=== PATIENT | female | born 1975 | race Caucasian/White ===

== ENCOUNTER 2022-08-26 13:31 | Inpatient (IN) | payer MEDICAID ==
[~2022-08-26] VITALS: Ht 165.1 cm; Wt 119.7 kg
[2022-08-26 18:45] LABS: BASOPHILS % 0.2 % (0.0-2.0); EOSINOPHILS % 1.8 % (0.0-5.0); HEMATOCRIT. 40.9 % (36.0-48.0); HEMOGLOBIN. 13.6 g/dL (12.0-16.0); LYMPHOCYTES % 30.3 % (20.0-50.0); MEAN CORPUSCULAR HEMOGLOBIN 28.2 pg (28.0-32.0); MEAN CORPUSCULAR VOLUME 84.6 fL (81.0-99.0); MEAN PLATELET VOLUME 9.4 fl (7.4-10.4); MONOCYTES % 7.4 % (2.0-8.0); NEUTROPHILS % 60.3 % (40.0-76.0); PLATELET 268 x1000/uL (130-400); RED BLOOD CELL COUNT 4.84 mill/uL (4.2-5.4); RED CELL DISTRIBUTION WIDTH 13.7 % (11.6-14.6)
[2022-08-26 18:58] LABS: CHLORIDE 104 mEq/L (98-107)
[2022-08-26 19:08] LABS: HCG SCREEN NEGATIVE
[2022-08-26] MEDS ORDERED: KETOROLAC 30MG/ML VIAL IV STA (20:24)
[2022-08-26] MEDS ORDERED: SODIUM CHLORIDE 0.9% 1,000 ML IV ONE (20:30)
[2022-08-26] MEDS ORDERED: ONDANSETRON HCL 4MG/2ML INJ IV ONE (20:30)
[2022-08-26 20:56] LABS: CLARITY URINE CLEAR (CLEAR); COLOR URINE YELLOW (YELLOW); KETONES URINE NEGATIVE (NEGATIVE); LEUKOCYTE ESTERASE URINE NEGATIVE (NEGATIVE); NITRITE URINE NEGATIVE (NEGATIVE); OCCULT BLOOD URINE NEGATIVE (NEGATIVE); PROTEIN URINE NEGATIVE (NEGATIVE); SPECIFIC GRAVITY URINE 1.006 (1.005-1.030); UROBILINOGEN URINE 0.2 E.U./dL (0.2-1.0)
[2022-08-26] MEDS ORDERED: CEFOXITIN SODIUM 2 G in DEXT 5% WATER 100 ML IV SCH (23:45)
[2022-08-27 04:15] VITALS: BP 114/71
[2022-08-27] MEDS ORDERED: POTASSIUM CHLORIDE 20MEQ/PACKET PO NR (06:15)
[2022-08-27] MEDS ORDERED: ONDANSETRON HCL 4MG/2ML INJ IV PRN ×3 (06:15→10:45)
[2022-08-27] MEDS ORDERED: MORPHINE SULFATE 2 MG/ML CPJ (NOT FOR IM USE) IV PRN ×2 (06:15→09:30)
[2022-08-27] MEDS ORDERED: DEXT 5%/0.45% NACL 1000ML 1,000 ML IV SCH (06:15)
[2022-08-27] MEDS ORDERED: DEXTROSE 50% WATER 50ML SYRINGE IV PRN (06:15)
[2022-08-27] MEDS ORDERED: BUPIVACAINE HCL/PF 0.5% (5MG/ML) 10ML ONE (07:49)
[2022-08-27] MEDS ORDERED: SKIN ADHESIVE 0.7 GM EA TOP ONE (07:49)
[2022-08-27] MEDS: INSULIN LISPRO 100 UNITS/ML SUBCUT SCH ×4 (07:50→21:33)
[2022-08-27 08:00] VITALS: BP 106/70
[2022-08-27] MEDS: BLOOD SUGAR DIAGNOSTIC STRIP TEST SCH ×4 (08:18→20:27)
[2022-08-27] MEDS: PIPERACILLIN/TAZOBACTAM 3.375G in DEXT 5% WATER 50ML IV SCH ×3 (08:32→21:32)
[2022-08-27] MEDS: PANTOPRAZOLE SODIUM 40 MG/VIAL IV SCH (09:16)
[2022-08-27] MEDS ORDERED: HYDROCODONE/ACETAMINOPHEN 5/325MG TABLET PO PRN ×2 (09:30)
[2022-08-27] MEDS ORDERED: DEXT 5%/0.45% NACL KCL 20MEQ/L 1,000 ML IV SCH (09:30)
[2022-08-27] MEDS ORDERED: MORPHINE SULFATE 4 MG/ML CPJ (NOT FOR IM USE) IV PRN (09:30)
[2022-08-27] MEDS ORDERED: DEXAMETHASONE 4MG/ML 1ML VIAL ONE (09:51)
[2022-08-27] MEDS ORDERED: FENTANYL CITRATE/PF 50MCG/ML 2ML VIAL ONE (09:51)
[2022-08-27] MEDS ORDERED: MIDAZOLAM HCL 2 MG/2 ML VIAL ONE (09:51)
[2022-08-27] MEDS ORDERED: NEOSTIGMINE METHYLSULFATE 1MG/ML 10 ML VIAL ONE (09:51)
[2022-08-27] MEDS ORDERED: ONDANSETRON HCL 4MG/2ML INJ ONE (09:51)
[2022-08-27] MEDS ORDERED: PROPOFOL 200MG/20ML VIAL IV ONE ×2 (09:51→10:16)
[2022-08-27] MEDS ORDERED: GLYCOPYRROLATE 0.2 MG/ML 2ML VIAL ONE ×2 (10:44→10:45)
[2022-08-27] MEDS ORDERED: LABETALOL 5MG/ML SYR 20 MG/4 ML SYRINGE IV PRN (10:45)
[2022-08-27] MEDS: HYDROMORPHONE HCL/PF 2MG/ML CPJ IV PRN ×4 (11:20→11:45)
[2022-08-27] MEDS: MEPERIDINE HCL/PF 25MG/ML CPJ IV PRN ×2 (12:14→12:32)
[2022-08-27] MEDS ORDERED: PIPERACILLIN/TAZOBACTAM 3.375GM/50ML PREMIX IV SCH (14:00)
[2022-08-27] MEDS ORDERED: NALOXONE HCL 0.4MG/ML VIAL IV PRN (15:00)
[2022-08-27 16:00] VITALS: BP 115/82
[2022-08-27 17:41] LABS: HEMOGLOBIN. 12.6 g/dL (12.0-16.0); MEAN CORPUSCULAR HEMOGLOBIN 28.8 pg (28.0-32.0); MEAN CORPUSCULAR VOLUME 84.4 fL (81.0-99.0); MEAN PLATELET VOLUME 9.4 fl (7.4-10.4); PLATELET 216 x1000/uL (130-400); RED BLOOD CELL COUNT 4.38 mill/uL (4.2-5.4); RED CELL DISTRIBUTION WIDTH 13.4 % (11.6-14.6)
[2022-08-27 17:49] LABS: CHLORIDE 107 mEq/L (98-107)
[2022-08-27 18:08] LABS: PLATELET ESTIMATE NORMAL
[2022-08-27 20:00] VITALS: BP 125/76
[2022-08-27] MEDS: SODIUM CHL 0.9% + KCL 20MEQ/L 1,000 ML IV SCH (20:18)
[2022-08-28] VITALS: BP 109/66
[2022-08-28 04:00] VITALS: BP 112/64
[2022-08-28] MEDS: SODIUM CHL 0.9% + KCL 20MEQ/L 1,000 ML IV SCH (04:42)
[2022-08-28] MEDS: PIPERACILLIN/TAZOBACTAM 3.375G in DEXT 5% WATER 50ML IV SCH (06:59)
[2022-08-28 07:30] LABS: BASOPHILS % 0.3 % (0.0-2.0); EOSINOPHILS % 0.8 % (0.0-5.0); HEMATOCRIT. 35.1 % (36.0-48.0); HEMOGLOBIN. 12.2 g/dL (12.0-16.0); LYMPHOCYTES % 21.8 % (20.0-50.0); MEAN CORPUSCULAR HEMOGLOBIN 29.4 pg (28.0-32.0); MEAN CORPUSCULAR VOLUME 84.5 fL (81.0-99.0); MEAN PLATELET VOLUME 9.3 fl (7.4-10.4); MONOCYTES % 7.7 % (2.0-8.0); NEUTROPHILS % 69.4 % (40.0-76.0); PLATELET 221 x1000/uL (130-400); RED BLOOD CELL COUNT 4.16 mill/uL (4.2-5.4); RED CELL DISTRIBUTION WIDTH 13.2 % (11.6-14.6)
[2022-08-28 07:43] LABS: CHLORIDE 109 mEq/L (98-107)
[2022-08-28 08:00] VITALS: BP 106/69
[2022-08-28] MEDS: PANTOPRAZOLE SODIUM 40 MG/VIAL IV SCH (09:06)
[2022-08-28 12:00] VITALS: BP 125/75
[2022-08-28 12:09] VITALS: BP 125/75
== END 2022-08-28 12:57 | disposition home or self-care (01) | DRG 710 ==
LOC: ER 13:31 → 6EST 08-27 01:15 → EDBEDREQ 08-27 01:19
PROVIDERS: ADMIT Internal Medicine; ATTEND Internal Medicine
PROC: 0DTJ4ZZ Resection of Appendix, Percutaneous Endoscopic Approach (ICD-10-PCS; principal; 2022-08-27)
DX: A41.9 Sepsis, unspecified organism (principal); K35.80 Unspecified acute appendicitis; E11.9 Type 2 diabetes mellitus without complications; E66.9 Obesity, unspecified; Z20.822 Contact with and (suspected) exposure to COVID-19; E78.5 Hyperlipidemia, unspecified; Z68.41 Body mass index [BMI] 40.0-44.9, adult; Z98.891 History of uterine scar from previous surgery; E78.00 Pure hypercholesterolemia, unspecified
CPT/HCPCS: 36415; 74177; 80048; 80053; 81003; 82962; 83036; 84703; 85025; 87426; 88304; 99291; C9113; J0694; J1100; J1170; J1815; J1885; J2175; J2250; J2270; J2405; J2543; J2704; J2710; J3010; J3480; J3490; J7030; J7060